=== PATIENT | female | born 1970 | race American Indian/Alaskan Native ===

== ENCOUNTER 2017-06-30 02:37 | Emergency (ER) | payer OTHER ==
--- NOTE | 2017-06-30 04:41 | XRay Report ---
FINAL REPORT EXAM: XR SPINE LUMBOSACRAL 2-3V HISTORY: lower back pain TECHNIQUE: Three views of the lumbar spine were submitted. FINDINGS: The disc heights and alignment appear normal. There is no evidence of fracture. The SI joints appear normal. The soft tissues are well maintained. IMPRESSION: Within normal limits.
[2017-06-30] MEDS ORDERED: DECADRON ONE (05:27)
[2017-06-30] MEDS ORDERED: DECADRON PO ONE (05:38)
[2017-06-30] MEDS ORDERED: TORADOL IM ONE (05:38)
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
[2017-06-30 06:08] LABS: Bacteria,Urine 4+ /HPF (Negative); Bilirubin,Urine NEG (Negative); Blood,Urine NEG (Negative); Ketones,Urine NEG (Negative); Leukocyte Esterase,Urine TR (Negative); Mucus,Urine FEW /HPF; Nitrite,Urine NEG (Negative); Protein,Urine <15 mg/dL mg/dL (Negative); Urobilinogen,Urine < 2.0 mg/dL (<2.0)
[2017-06-30 07:54] VITALS: BP 152/52
== END 2017-06-30 08:13 | disposition home or self-care (01) ==
LOC: ED 02:37
DX: I10 Essential (primary) hypertension (principal); M54.32 Sciatica, left side; R10.9 Unspecified abdominal pain; Z88.0 Allergy status to penicillin
CPT/HCPCS: 72100; 81001; 87086; 96372; 99284; J1885; J8540

== ENCOUNTER 2017-07-07 06:44 | Emergency (ER) | payer OTHER ==
[2017-07-07 07:18] VITALS: BP 148/55
[2017-07-07 07:56] LABS: Bilirubin,Urine NEG (Negative); Blood,Urine NEG (Negative); Ketones,Urine NEG (Negative); Leukocyte Esterase,Urine NEG (Negative); Mucus,Urine FEW /HPF; Nitrite,Urine NEG (Negative); Protein,Urine <15 mg/dL mg/dL (Negative); Urobilinogen,Urine < 2.0 mg/dL (<2.0)
[2017-07-07] MEDS ORDERED: TORADOL IM ONE (09:35)
[2017-07-07] MEDS ORDERED: ZOFRAN ODT PO ONE (09:39)
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
== END 2017-07-07 10:03 | disposition home or self-care (01) ==
LOC: ED 06:44
DX: M54.42 Lumbago with sciatica, left side (principal); G89.29 Other chronic pain; I10 Essential (primary) hypertension; Z90.49 Acquired absence of other specified parts of digestive tract; Z98.51 Tubal ligation status; Z86.2 Personal history of diseases of the blood and blood-forming organs and certain disorders involving the immune mechanism; Z88.0 Allergy status to penicillin
CPT/HCPCS: 81001; 96372; 99283; J1885; Q0162

== ENCOUNTER 2017-12-13 05:27 | Emergency (ER) | payer OTHER ==
[2017-12-13 05:33] VITALS: BP 150/75
== END 2017-12-13 06:30 | disposition left against medical advice (07) ==
LOC: ED 05:27
DX: R21 Rash and other nonspecific skin eruption (principal); Z53.21 Procedure and treatment not carried out due to patient leaving prior to being seen by health care provider

== ENCOUNTER 2018-01-05 23:52 | Emergency (ER) | payer OTHER ==
[2018-01-06 00:04] VITALS: BP 150/84
--- NOTE | 2018-01-06 01:35 | Emergency Department Report ---
ED Rash HPI - HPI Chief Complaint: Skin Rash Stated Complaint: RASH ON NECK/FACE Time Seen by Provider: 01/06/18 01:30 Duration: 3 Days Location: Neck Suspected Cause: Unknown Rash Symptoms: Yes Itching, No Facial Swelling, No Tongue/Oral Swelling, No Breathing Difficulties, No Choking Sensation, No Wheezing/Dyspnea, No Peeling, No Blistering, No Fever, No Lightheaded, No Malaise, No Myalgias Severity: moderate Other History: 47-year-old Thai female comes in complaining of rash the neck and face since Saturday. Patient reports itchiness. She is not sure if she has changed soaps from Dove to Lever 1999. Patient has tried [id number] remedies such as baking soda to the area. Patient reports she has allergy to penicillin she currently takes no medications on a daily basis and has a past medical history of anemia and tubal ligation. ED Review of Systems ROS: Stated complaint: RASH ON NECK/FACE Other details as noted in HPI Skin: rash (neck N Chin) ED Past Medical Hx - Past Medical History Previous Medical History?: Yes Hx Hypertension: No Additional medical history: Anemia - Surgical History Past Surgical History?: Yes Hx Cholecystectomy: Yes Additional Surgical History: Tubal Ligation - Social History Smoking Status: Never Smoker Substance Use Type: None - Medications Home Medications: Home Medications Medication Instructions Recorded Confirmed Last Taken Type Naproxen [Naprosyn] 500 mg PO BID #30 tablet 06/30/17 Unknown Rx Cyclobenzaprine [Flexeril] 10 mg PO QHS PRN #5 tablet 07/07/17 Unknown Rx Ibuprofen [Motrin] 600 mg PO Q8H PRN #30 tablet 07/07/17 Unknown Rx Triamcinolone Acetonide 1 applic TP BID PRN #15 oint...g. 01/06/18 Unknown Rx Rash Exam - Exam General: Vital signs noted. No distress. Alert and acting appropriately. HEENT: No Periorbital Edema, No Conjuctival Injection, No Chemosis, No Perioral Edema, No Tongue Edema, No Uvular Edema, No Compromised Airway, No Drooling Lungs: Yes Good Air Exchange (Normal Breath Sounds), No Wheezes, No Ronchi, No Stridor, No Cough, No Labored Respirations, No Retractions, No Use of Accessory Muscles, No Other Abnormal Lung Sounds Heart: Yes Regular, No Murmur Skin: Yes Maculopapular Rash, Yes Erythema, Yes Edema, No Encrustations, No Other Other: Positive: Abdomen Normal, Neurologic Normal, Musculoskeletal Normal ED Course Vital Signs 01/06/18 00:01 Temperature 98.4 F Pulse Rate 76 Respiratory 18 Rate Blood Pressure 150/84 O2 Sat by Pulse 100 Oximetry ED Medical Decision Making - Medical Decision Making Patient has been evaluated with his provider fast track. I discussed the patient that I will place her on an mouth steroids applied to her neck. I discussed the patient did not apply to her chin as has some hypopigmentation at this moment. Discussed patient to stop using the Lever 2000. If symptoms persist to follow up with her primary care provider. Critical care attestation.: If time is entered above; I have spent that time in minutes in the direct care of this critically ill patient, excluding procedure time. ED Disposition Clinical Impression: Rash Disposition: DC-01 TO HOME OR SELFCARE Is pt being admited?: No Does the pt Need Aspirin: No Condition: Stable Instructions: Acute Rash (ED) Additional Instructions: Please apply cream to the rash twice a day as needed. If symptoms persist or gets worse please follow up with her primary care provider. Prescriptions: Triamcinolone Acetonide 1 applic TP BID PRN #15 oint...g. PRN Reason: Rash Referrals: CARE TEAM,INTERNAL MEDICINE [Other] - 3-5 Days Forms: Work/School Release Form(ED)
== END 2018-01-06 01:30 | disposition home or self-care (01) ==
LOC: ED 23:52
DX: R21 Rash and other nonspecific skin eruption (principal); D64.9 Anemia, unspecified; Z90.49 Acquired absence of other specified parts of digestive tract; Z98.51 Tubal ligation status
CPT/HCPCS: 99282

== ENCOUNTER 2018-01-30 13:49 | Emergency (ER) | payer OTHER ==
[2018-01-30 13:59] VITALS: BP 164/81
[2018-01-30] MEDS ORDERED: DECADRON IM STA (15:19)
--- NOTE | 2018-01-30 15:19 | Emergency Department Report ---
ED Rash HPI - HPI Chief Complaint: Skin Rash Stated Complaint: FACIAL RASH Time Seen by Provider: 01/30/18 14:50 Duration: 6 days Location: Other (face) Suspected Cause: Unknown Rash Symptoms: Yes Itching (face), No Facial Swelling, No Tongue/Oral Swelling, No Breathing Difficulties, No Choking Sensation, No Wheezing/Dyspnea, No Peeling , No Blistering, No Fever, No Lightheaded, No Malaise, No Myalgias Severity: moderate Other History: Patient reports that she has facial rash on left side of her face and she broke out and have bumps to her face that is itchy and burning. She's had similar episode in the past. Patient said she had put steroid on her face and it changed colors that now she has dark spots on some area for face. She says she's been under a lot of stress that she is going on vacation so this usually happens when she is on distress. Denies any insect bite, food allergy. Denies any nausea vomiting, denies fever chills. Denies any shortness of breath or chest pain. Denies stridor or difficulty breathing. Denies any difficulty with swallowing or tongue or lip swelling. She's been putting cortisone cream and face but reports not getting better. She also reports that she put peroxide in her face which causes burning sensation. ED Review of Systems ROS: Stated complaint: FACIAL RASH Other details as noted in HPI Constitutional: denies: chills, fever Eyes: denies: eye discharge ENT: denies: ear pain, throat pain, congestion Respiratory: denies: cough, shortness of breath, SOB with exertion, SOB at rest , stridor, wheezing Cardiovascular: denies: chest pain, palpitations, edema, syncope Gastrointestinal: denies: nausea, vomiting Musculoskeletal: denies: joint swelling, arthralgia Skin: rash, pruritus. denies: lesions Neurological: denies: headache Psychiatric: denies: anxiety Hematological/Lymphatic: easy bleeding, easy bruising ED Past Medical Hx - Past Medical History Previous Medical History?: Yes Hx Hypertension: No Additional medical history: Anemia - Surgical History Past Surgical History?: Yes Hx Cholecystectomy: Yes Additional Surgical History: Tubal Ligation - Family History Family history: hypertension - Social History Smoking Status: Never Smoker Substance Use Type: None - Medications Home Medications: Home Medications Medication Instructions Recorded Confirmed Last Taken Type Naproxen [Naprosyn] 500 mg PO BID #30 tablet 06/30/17 Unknown Rx Cyclobenzaprine [Flexeril] 10 mg PO QHS PRN #5 tablet 07/07/17 Unknown Rx Ibuprofen [Motrin] 600 mg PO Q8H PRN #30 tablet 07/07/17 Unknown Rx Triamcinolone Acetonide 1 applic TP BID PRN #15 oint...g. 01/06/18 Unknown Rx Sulfamethoxazole/Trimethoprim 1 each PO BID 7 Days #14 tablet 01/30/18 Unknown Rx [Bactrim DS TAB] hydrOXYzine HCL [Atarax] 25 mg PO Q6HR PRN #15 tablet 01/30/18 Unknown Rx methylPREDNISolone [Medrol Dose 4 mg PO QAM 6 Days #1 pack 01/30/18 Unknown Rx Julián] Rash Exam - Exam General: Vital signs noted. No distress. Alert and acting appropriately. This is a 48-year-old female well-nourished well-developed in no acute distress. HEENT: No Periorbital Edema, No Conjuctival Injection, No Chemosis, No Perioral Edema, No Tongue Edema, No Uvular Edema, No Compromised Airway, No Drooling Lungs: Yes Good Air Exchange, No Wheezes, No Ronchi, No Stridor, No Cough, No Labored Respirations, No Retractions, No Use of Accessory Muscles, No Other Abnormal Lung Sounds Heart: Yes Regular (S1, S2), No Murmur Front/Back of Body, Lg (Color): 1 - Patient with pustular type bumps to the facial area. Sparsely scattered. No sign of cellulitis but tender to palpate. No drainage noted. Tetanus vaccine is up-to-date. Skin: Yes Excoriations (minimally to the facial area), Yes Tenderness (left facial area), Yes Other (pustular type, sparsely scattered bumps to the facial area.), No Urticarial Rash, No Maculopapular Rash, No Morbilliform rash, No Bulla(e), No Weeping, No Erythema, No Edema, No Encrustations Other: Positive: Abdomen Normal, Neurologic Normal, Musculoskeletal Normal ED Course Vital Signs 01/30/18 13:55 Temperature 97.6 F Pulse Rate 78 Respiratory 18 Rate Blood Pressure 164/81 O2 Sat by Pulse 98 Oximetry - Reevaluation(s) Reevaluation #1: 01/30/18 15:58 Patient given Decadron 10 mg IM and emergency room for skin rash. ED Medical Decision Making - Medical Decision Making This is a 48-year-old female presents emergency room 6 days of rash to face. She states that she is getting ready to go on vacation and she is under a lot of stress and similar episode 5 break in a pass when she is in stress. She is here to be evaluated. She is having itching with some burning to spots were rash is located. No anaphylaxis. Patient was seen and examined by myself and found to have pustular type bumps that is sparsely scattered to the facial area. Minimal tenderness to palpate. No signs of cellulitis, appears to be facial acne. She has hypopigmented spots to her facial area forearm where she is steroids on her face in the past. No involvement of upper or lower respiratory tract. Itching resolved with Decadron. I discussed diagnosis and treatment plan the patient and she voiced understanding. A/P 1: Facial pustules-will start on Bactrim DS 2: Nonspecific skin eruption-patient has acne to the facial area and she was given Decadron 10 mg IM which relieved her itching in and was started on Medrol Dosepak and Atarax for itching. Patient education and diagnosis, medication and needs follow-up with relief operator and she voiced understanding. Patient will be referred to relief operator and backed her primary care physician for follow-up visit Patient is stable and discharged home in stable condition. Vital signs are stable and she is afebrile. Patient has been relief. Patient discharged home to follow up with primary care and dermatology tomorrow. Discharged in stable condition with prescription for Bactrim DS, Medrol Dosepak and Atarax - Differential Diagnosis cellulitis, allergic reaction, contact dermatitis, acne Critical care attestation.: If time is entered above; I have spent that time in minutes in the direct care of this critically ill patient, excluding procedure time. ED Disposition Clinical Impression: Skin pustule, Rash and nonspecific skin eruption, Pruritic rash Disposition: DC-01 TO HOME OR SELFCARE Is pt being admited?: No Does the pt Need Aspirin: No Condition: Stable Instructions: Acute Rash (ED), Itchy Skin (ED) Additional Instructions: Keep affected area clean and dry Primary care relief operator as discussed Take medication as instructed Please do not put steroids on your face. Prescriptions: hydrOXYzine HCL [Atarax] 25 mg PO Q6HR PRN #15 tablet PRN Reason: Itching methylPREDNISolone [Medrol Dose Julián] 4 mg PO QAM 6 Days #1 pack Sulfamethoxazole/Trimethoprim [Bactrim DS TAB] 1 each PO BID 7 Days #14 tablet Referrals: PRIMARY CAREMD [Primary Care Provider] - 01/31/18 MADDISON PIÑA MD [Staff Physician] - 01/31/18
== END 2018-01-30 16:22 | disposition home or self-care (01) ==
LOC: ED 13:49
DX: L08.0 Pyoderma (principal); Z86.2 Personal history of diseases of the blood and blood-forming organs and certain disorders involving the immune mechanism; Z98.51 Tubal ligation status; Z90.49 Acquired absence of other specified parts of digestive tract; Z88.0 Allergy status to penicillin
CPT/HCPCS: 96372; 99282; J1100

== ENCOUNTER 2018-04-19 12:25 | Emergency (ER) | payer OTHER ==
[2018-04-19 13:22] LABS: Basophils % (Auto) 0.7 % (0.0-1.8); Eosinophils # (Auto) 0.1 K/mm3 (0.0-0.4); Eosinophils % (Auto) 1.6 % (0.0-4.3); Hematocrit 30.1 % (30.3-42.9); Hemoglobin 9.4 gm/dl (10.1-14.3); Lymphocytes # (Auto) 1.1 K/mm3 (1.2-5.4); Lymphocytes % (Auto) 26.7 % (13.4-35.0); Mean Corpuscular HGB Conc 31 % (30-34); Monocytes # (Auto) 0.2 K/mm3 (0.0-0.8); Monocytes % (Auto) 5.9 % (0.0-7.3); Platelet Count 289 K/mm3 (140-440)
[2018-04-19 13:26] LABS: Mean Corpuscular Hemoglobin 21 pg (28-32); Mean Corpuscular Volume 67 fl (79-97)
[2018-04-19] MEDS ORDERED: LIDOCAINE VISCOUS 2% PO ONE (15:13)
[2018-04-19] MEDS ORDERED: ALUM-MAG HYDROX-SIMETH 200-200-20MG/5ML PO ONE (15:13)
--- NOTE | 2018-04-19 15:14 | Emergency Department Report ---
ED Abdominal Pain HPI - General Chief Complaint: Recheck/Abnormal Lab/Rx Stated Complaint: IRON LOW Time Seen by Provider: 04/19/18 14:53 Source: patient Mode of arrival: Ambulatory Limitations: No Limitations - History of Present Illness Initial Comments: 48-year-old female presents to the ED with concern that her iron may be low. Patient reports that she is anemic, but has never required transfusion. When asked why she feels like her iron is low, patient states it is because over the last 3 days, every time she eats she experiences epigastric pain. Patient reports nausea and no vomiting. Reports generalized weakness. When asked if she has history of acid reflux, patient states no. MD Complaint: abdominal pain -: days(s) (3) Location: epigastric Radiation: none Migration to: no migration Severity: moderate Quality: sharp Consistency: intermittent Improves With: nothing Worsens With: eating Associated Symptoms: denies: vomiting - Related Data Previous Rx's Medication Instructions Recorded Last Taken Type Naproxen [Naprosyn] 500 mg PO BID #30 tablet 06/30/17 Unknown Rx Cyclobenzaprine [Flexeril] 10 mg PO QHS PRN #5 tablet 07/07/17 Unknown Rx Ibuprofen [Motrin] 600 mg PO Q8H PRN #30 tablet 07/07/17 Unknown Rx Triamcinolone Acetonide 1 applic TP BID PRN #15 oint...g. 01/06/18 Unknown Rx Sulfamethoxazole/Trimethoprim 1 each PO BID 7 Days #14 tablet 01/30/18 Unknown Rx [Bactrim DS TAB] hydrOXYzine HCL [Atarax] 25 mg PO Q6HR PRN #15 tablet 01/30/18 Unknown Rx methylPREDNISolone [Medrol Dose 4 mg PO QAM 6 Days #1 pack 01/30/18 Unknown Rx Julián] Dicyclomine [Bentyl] 20 mg PO QID PRN #20 tablet 04/19/18 Unknown Rx Esomeprazole Magnesium [Nexium] 40 mg PO DAILY #30 capsule. 04/19/18 Unknown Rx Ondansetron [Zofran Odt] 4 mg PO Q8HR PRN #20 tab.rapdis 04/19/18 Unknown Rx Allergies Allergy/AdvReac Type Severity Reaction Status Date / Time Penicillins Allergy Hives Verified 06/30/17 05:35 ED Review of Systems ROS: Stated complaint: IRON LOW Other details as noted in HPI Comment: All other systems reviewed and negative Constitutional: denies: chills, fever Respiratory: denies: shortness of breath Gastrointestinal: abdominal pain Neurological: weakness (generalized) ED Past Medical Hx - Past Medical History Hx Hypertension: No Additional medical history: Anemia - Surgical History Hx Cholecystectomy: Yes Additional Surgical History: Tubal Ligation - Social History Smoking Status: Never Smoker Substance Use Type: None - Medications Home Medications: Home Medications Medication Instructions Recorded Confirmed Last Taken Type Naproxen [Naprosyn] 500 mg PO BID #30 tablet 06/30/17 Unknown Rx Cyclobenzaprine [Flexeril] 10 mg PO QHS PRN #5 tablet 07/07/17 Unknown Rx Ibuprofen [Motrin] 600 mg PO Q8H PRN #30 tablet 07/07/17 Unknown Rx Triamcinolone Acetonide 1 applic TP BID PRN #15 oint...g. 01/06/18 Unknown Rx Sulfamethoxazole/Trimethoprim 1 each PO BID 7 Days #14 tablet 01/30/18 Unknown Rx [Bactrim DS TAB] hydrOXYzine HCL [Atarax] 25 mg PO Q6HR PRN #15 tablet 01/30/18 Unknown Rx methylPREDNISolone [Medrol Dose 4 mg PO QAM 6 Days #1 pack 01/30/18 Unknown Rx Julián] Dicyclomine [Bentyl] 20 mg PO QID PRN #20 tablet 04/19/18 Unknown Rx Esomeprazole Magnesium [Nexium] 40 mg PO DAILY #30 capsule.dr 04/19/18 Unknown Rx Ondansetron [Zofran Odt] 4 mg PO Q8HR PRN #20 tab.rapdis 04/19/18 Unknown Rx ED Physical Exam - General Limitations: No Limitations General appearance: alert, in no apparent distress - Head Head exam: Present: atraumatic, normocephalic - Eye Eye exam: Present: normal appearance - ENT ENT exam: Present: mucous membranes moist - Neck Neck exam: Present: normal inspection - Respiratory Respiratory exam: Present: normal lung sounds bilaterally. Absent: respiratory distress - Cardiovascular Cardiovascular Exam: Present: regular rate, normal rhythm - GI/Abdominal GI/Abdominal exam: Present: soft. Absent: distended, tenderness - Extremities Exam Extremities exam: Present: normal inspection - Neurological Exam Neurological exam: Present: alert, oriented X3 - Psychiatric Psychiatric exam: Present: normal affect, normal mood - Skin Skin exam: Present: warm, dry, intact, normal color ED Course Vital Signs 04/19/18 12:40 Temperature 99.5 F Pulse Rate 67 Respiratory 18 Rate Blood Pressure 171/62 O2 Sat by Pulse 99 Oximetry ED Medical Decision Making - Lab Data Result diagrams: 04/19/18 13:07 04/19/18 15:38 - EKG Data -: EKG Interpreted by Md EKG shows normal: sinus rhythm, axis, intervals, QRS complexes, ST-T waves Rate: normal - EKG Data Interpretation: normal EKG - Medical Decision Making Pt anemic but does not require blood transfusion at this time. Likely GERD if pt having epigastric pain following meals. Workup unremarkable. Will d/c with nexium, bentyl, and GI follow-up - Differential Diagnosis gastritis, ACS, pancreatitis, anemia Critical care attestation.: If time is entered above; I have spent that time in minutes in the direct care of this critically ill patient, excluding procedure time. ED Disposition Clinical Impression: GERD (gastroesophageal reflux disease) Disposition: TO HOME OR SELFCARE Is pt being admited?: No Condition: Stable Instructions: Diet for Ulcers and Gastritis (ED), Gastroesophageal Reflux Disease (ED) Prescriptions: Dicyclomine [Bentyl] 20 mg PO QID PRN #20 tablet PRN Reason: abdominal pain Esomeprazole Magnesium [Nexium] 40 mg PO DAILY #30 capsule. Ondansetron [Zofran Odt] 4 mg PO Q8HR PRN #20 tab.rapdis PRN Reason: Nausea Referrals: PRIMARY CARE, [Primary Care Provider] - 3-5 Days CINDY BARNHART MD [Staff Physician] - 3-5 Days CECY GIBSON MD [Staff Physician] - 3-5 Days YUMI TOMPKINS MD [Staff Physician] - 3-5 Days Time of Disposition: 16:34
[2018-04-19 16:04] LABS: Alanine Aminotransferase 7 units/L (7-56); BUN/Creatinine Ratio 7; Blood Urea Nitrogen 7 mg/dL (7-17); Hemolysis Index 0; Lipase 27 units/L (13-60)
[2018-04-19 16:08] LABS: Bilirubin,Direct < 0.2 mg/dL (0-0.2)
[2018-04-19 16:48] VITALS: BP 168/78
== END 2018-04-19 16:46 | disposition home or self-care (01) ==
LOC: ED 12:25
DX: K21.9 Gastro-esophageal reflux disease without esophagitis (principal); D50.9 Iron deficiency anemia, unspecified; Z98.51 Tubal ligation status; Z88.0 Allergy status to penicillin
CPT/HCPCS: 36415; 80048; 80074; 82728; 83540; 83690; 84484; 85025; 93005; 93010; 99283

== ENCOUNTER 2018-09-27 05:33 | Emergency (ER) | payer OTHER ==
[2018-09-27 06:37] LABS: Basophils % (Auto) 0.7 % (0.0-1.8); Eosinophils # (Auto) 0.1 K/mm3 (0.0-0.4); Eosinophils % (Auto) 1.6 % (0.0-4.3); Hematocrit 23.5 % (30.3-42.9); Hemoglobin 7.3 gm/dl (10.1-14.3); Lymphocytes # (Auto) 1.3 K/mm3 (1.2-5.4); Lymphocytes % (Auto) 27.4 % (13.4-35.0); Mean Corpuscular HGB Conc 31 % (30-34); Monocytes # (Auto) 0.3 K/mm3 (0.0-0.8); Monocytes % (Auto) 6.5 % (0.0-7.3); Platelet Count 271 K/mm3 (140-440); Red Blood Count 3.84 M/mm3 (3.65-5.03); Red Cell Distribution Width 19.9 % (13.2-15.2)
[2018-09-27 06:40] LABS: Mean Corpuscular Volume 61 fl (79-97)
[2018-09-27 06:57] LABS: Alanine Aminotransferase 5 units/L (7-56); Albumin 3.8 g/dL (3.9-5); BUN/Creatinine Ratio 16; Blood Urea Nitrogen 13 mg/dL (7-17); Calcium 8.7 mg/dL (8.4-10.2); Hemolysis Index 7
[2018-09-27 07:22] VITALS: BP 131/65
--- NOTE | 2018-09-27 07:30 | Emergency Department Report ---
ED General Adult HPI - General Chief complaint: Dizziness Stated complaint: IRON LOW Time Seen by Provider: 09/27/18 07:09 Source: patient Mode of arrival: Ambulatory Limitations: No Limitations - History of Present Illness Initial comments: Patient is 48 years old female with no significant past medical history except for anemia. Patient presented to the ER complaining of generalized weakness and dizziness and feeling tired and fatigued all the time. Patient denied any chest pain, shortness of breath, headache, numbness or tingling sensation. Patient stated that she is not taking a medicine for her anemia. She added that she have heavy menstrual period that can continue for up to 7 days sometimes. Patient did not have any follow-up with a phlebotomy program coordinator for that. Severity scale (0 -10): 0 - Related Data Previous Rx's Medication Instructions Recorded Last Taken Type Naproxen [Naprosyn] 500 mg PO BID #30 tablet 06/30/17 Unknown Rx Cyclobenzaprine [Flexeril] 10 mg PO QHS PRN #5 tablet 07/07/17 Unknown Rx Ibuprofen [Motrin] 600 mg PO Q8H PRN #30 tablet 07/07/17 Unknown Rx Triamcinolone Acetonide 1 applic TP BID PRN #15 oint...g. 01/06/18 Unknown Rx Sulfamethoxazole/Trimethoprim 1 each PO BID 7 Days #14 tablet 01/30/18 Unknown Rx [Bactrim DS TAB] hydrOXYzine HCL [Atarax] 25 mg PO Q6HR PRN #15 tablet 01/30/18 Unknown Rx methylPREDNISolone [Medrol Dose 4 mg PO QAM 6 Days #1 pack 01/30/18 Unknown Rx Julián] Dicyclomine [Bentyl] 20 mg PO QID PRN #20 tablet 04/19/18 Unknown Rx Esomeprazole Magnesium [Nexium] 40 mg PO DAILY #30 capsule.dr 04/19/18 Unknown Rx Ondansetron [Zofran Odt] 4 mg PO Q8HR PRN #20 tab.rapdis 04/19/18 Unknown Rx Allergies Allergy/AdvReac Type Severity Reaction Status Date / Time Penicillins Allergy Hives Verified 06/30/17 05:35 ED Review of Systems ROS: Stated complaint: IRON LOW Other details as noted in HPI Comment: All other systems reviewed and negative Constitutional: denies: chills, fever Respiratory: denies: cough, orthopnea, shortness of breath, SOB with exertion Cardiovascular: denies: chest pain, palpitations, dyspnea on exertion Gastrointestinal: denies: abdominal pain, nausea, vomiting, diarrhea, constipation, hematemesis, hematochezia Neurological: weakness (generalized), other (dizziness). denies: headache, numbness, paresthesias, confusion, abnormal gait ED Past Medical Hx - Past Medical History Previous Medical History?: Yes Hx Hypertension: No Additional medical history: Anemia - Surgical History Past Surgical History?: Yes Hx Cholecystectomy: Yes Additional Surgical History: Tubal Ligation - Social History Smoking Status: Never Smoker Substance Use Type: None - Medications Home Medications: Home Medications Medication Instructions Recorded Confirmed Last Taken Type Naproxen [Naprosyn] 500 mg PO BID #30 tablet 06/30/17 Unknown Rx Cyclobenzaprine [Flexeril] 10 mg PO QHS PRN #5 tablet 07/07/17 Unknown Rx Ibuprofen [Motrin] 600 mg PO Q8H PRN #30 tablet 07/07/17 Unknown Rx Triamcinolone Acetonide 1 applic TP BID PRN #15 oint...g. 01/06/18 Unknown Rx Sulfamethoxazole/Trimethoprim 1 each PO BID 7 Days #14 tablet 01/30/18 Unknown Rx [Bactrim DS TAB] hydrOXYzine HCL [Atarax] 25 mg PO Q6HR PRN #15 tablet 01/30/18 Unknown Rx methylPREDNISolone [Medrol Dose 4 mg PO QAM 6 Days #1 pack 01/30/18 Unknown Rx Julián] Dicyclomine [Bentyl] 20 mg PO QID PRN #20 tablet 04/19/18 Unknown Rx Esomeprazole Magnesium [Nexium] 40 mg PO DAILY #30 capsule.dr 04/19/18 Unknown Rx Ondansetron [Zofran Odt] 4 mg PO Q8HR PRN #20 tab.rapdis 04/19/18 Unknown Rx ED Physical Exam - General Limitations: No Limitations General appearance: alert, in no apparent distress - Head Head exam: Present: atraumatic, normocephalic, normal inspection - Eye Eye exam: Present: normal appearance, PERRL - ENT ENT exam: Present: normal exam, normal orophraynx, mucous membranes moist - Neck Neck exam: Present: normal inspection, full ROM. Absent: tenderness, meningismus, lymphadenopathy, thyromegaly - Respiratory Respiratory exam: Present: normal lung sounds bilaterally. Absent: respiratory distress, wheezes, rales, rhonchi, chest wall tenderness, accessory muscle use, decreased breath sounds, prolonged expiratory - Cardiovascular Cardiovascular Exam: Present: regular rate, normal rhythm, normal heart sounds - GI/Abdominal GI/Abdominal exam: Present: soft, normal bowel sounds. Absent: distended, tenderness, guarding, rebound, rigid, organomegaly, mass, bruit, pulsatile mass, hernia - Extremities Exam Extremities exam: Present: normal inspection, full ROM, normal capillary refill. Absent: pedal edema, calf tenderness - Back Exam Back exam: Present: normal inspection, full ROM. Absent: CVA tenderness (R), CVA tenderness (L), muscle spasm, paraspinal tenderness, vertebral tenderness - Neurological Exam Neurological exam: Present: alert, oriented X3, CN II-XII intact, normal gait, reflexes normal - Psychiatric Psychiatric exam: Present: normal mood - Skin Skin exam: Present: warm, intact, normal color ED Course Vital Signs 09/27/18 07:22 Temperature 98.4 F Pulse Rate 65 Respiratory 18 Rate Blood Pressure 131/65 [Left] O2 Sat by Pulse 99 Oximetry ED Medical Decision Making - Lab Data Result diagrams: 09/27/18 05:55 09/27/18 05:55 - Medical Decision Making Patient is 48 years old female with no significant past medical history except for anemia. Patient presented to the ER complaining of generalized weakness and dizziness and feeling tired and fatigued all the time. Patient denied any chest pain, shortness of breath, headache, numbness or tingling sensation. Patient stated that she is not taking a medicine for her anemia. She added that she have heavy menstrual period that can continue for up to 7 days sometimes. Patient did not have any follow-up with a phlebotomy program coordinator for that. Patient labs reviewed and showed a hemoglobin of 7.2. MCV 61 which is consistent with chronic iron deficiency anemia most likely from heavy bleeding during menstrual period. Patient does not have any clinical symptoms or signs of congestive heart failure. Patient does not need a blood transfusion at this moment. I believe patient will benefit from iron supplementation and a referral to phlebotomy program coordinator at this moment. I also advised patient to retain to the emergency room if her symptoms are not improved Critical care attestation.: If time is entered above; I have spent that time in minutes in the direct care of this critically ill patient, excluding procedure time. ED Disposition Clinical Impression: Anemia, Weakness Disposition: DC-01 TO HOME OR SELFCARE Is pt being admited?: No Condition: Stable Instructions: Weakness (ED), Iron Deficiency Anemia (ED), Iron Rich Diet (ED) Referrals: NADIYA COSME MD [Staff Physician] - 3-5 Days
== END 2018-09-27 07:40 | disposition home or self-care (01) ==
LOC: ED 05:33
DX: D64.9 Anemia, unspecified (principal); R53.1 Weakness; Z90.49 Acquired absence of other specified parts of digestive tract
CPT/HCPCS: 36415; 80053; 85025

== ENCOUNTER 2019-01-23 11:45 | Emergency (ER) | payer OTHER ==
[2019-01-23 12:20] VITALS: BP 178/80
--- NOTE | 2019-01-23 12:23 | Emergency Department Report ---
Blank Doc - Documentation Documentation: Pt with pain and swelling to rt ankle and knee. No trauma. Limping Xrays ordered Pt in no distress
--- NOTE | 2019-01-23 13:13 | XRay Report ---
3 views of the right ankle INDICATION: pain and swelling. COMPARISON: None available. FINDINGS: There is no evidence of fracture or subluxation of the ankle. There is mild soft tissue swelling abraham g the lateral ankle. Signer Name: Chino March MD Signed: 01/23/2019 1:08 PM Workstation Name: [id number]
--- NOTE | 2019-01-23 13:14 | XRay Report ---
Right knee 2 views INDICATION: Pain and swelling. FINDINGS: No fracture or dislocation is seen in the right knee. The joint spaces are maintained. No f ocal lytic or sclerotic lesions are seen. A small quadriceps insertion enthesophyte. No joint effusio n. Normal soft tissues. IMPRESSION: No acute abnormality. Quadriceps enthesopathy. Signer Name: Ariel Flores MD Signed: 01/23/2019 1:10 PM Workstation Name: [id number]
--- NOTE | 2019-01-23 13:57 | Emergency Department Report ---
HPI - General Chief Complaint: Extremity Injury, Lower Time Seen by Provider: 01/23/19 12:21 - HPI HPI: 49 yo AA F presents to the ED with the complaint of some pain and swelling to the right knee and ankle that has been going on for the past few days. She denies any trauma. The knee pain is to the anterior knee. The pain and swelling is to the outside of the ankle. She has not taken anything for her symptoms prior to presentation. She denies any other past medical history. No recent travel or sick contacts at home. She denies any rash or skin color changes. ED Past Medical Hx - Past Medical History Previous Medical History?: No Hx Hypertension: No Additional medical history: Anemia - Surgical History Hx Cholecystectomy: Yes Additional Surgical History: Tubal Ligation - Social History Smoking Status: Never Smoker Substance Use Type: None - Medications Home Medications: Home Medications Medication Instructions Recorded Confirmed Last Taken Type Naproxen [Naprosyn] 500 mg PO BID #30 tablet 06/30/17 Unknown Rx Cyclobenzaprine [Flexeril] 10 mg PO QHS PRN #5 tablet 07/07/17 Unknown Rx Triamcinolone Acetonide 1 applic TP BID PRN #15 oint...g. 01/06/18 Unknown Rx Sulfamethoxazole/Trimethoprim 1 each PO BID 7 Days #14 tablet 01/30/18 Unknown Rx [Bactrim DS TAB] hydrOXYzine HCL [Atarax] 25 mg PO Q6HR PRN #15 tablet 01/30/18 Unknown Rx methylPREDNISolone [Medrol Dose 4 mg PO QAM 6 Days #1 pack 01/30/18 Unknown Rx Julián] Dicyclomine [Bentyl] 20 mg PO QID PRN #20 tablet 04/19/18 Unknown Rx Esomeprazole Magnesium [Nexium] 40 mg PO DAILY #30 capsule. 04/19/18 Unknown Rx Ondansetron [Zofran Odt] 4 mg PO Q8HR PRN #20 tab.kailyn 04/19/18 Unknown Rx Docusate Sodium [Colace] 100 mg PO BID PRN #60 capsule 09/27/18 Unknown Rx Ferrous Sulfate [Feosol 325 MG tab] 325 mg PO BID #60 tablet 09/27/18 Unknown Rx Ibuprofen [Motrin 600 MG tab] 600 mg PO Q8H PRN #20 tablet 01/23/19 Unknown Rx ED Review of Systems ROS: Stated complaint: RT LEG SWOLLEN Other details as noted in HPI Comment: All other systems reviewed and negative Cardiovascular: edema Musculoskeletal: joint swelling, arthralgia Skin: denies: rash, lesions Physical Exam - Physical Exam Vital Signs: Vital Signs 01/23/19 12:18 Temperature 98.0 F Pulse Rate 63 Respiratory 18 Rate Blood Pressure 178/80 O2 Sat by Pulse 98 Oximetry Physical Exam: GENERAL: The patient is well-developed well-nourished. HENT: Normocephalic. Atraumatic. Patient has moist mucous membranes. EYES: Extraocular motions are intact. NECK: Supple. Trachea is midline. CHEST/LUNGS: Clear to auscultation. There is no respiratory distress noted. HEART/CARDIOVASCULAR: Regular. There is no tachycardia. There is no murmur. ABDOMEN: There is no abdominal distention. SKIN: Skin is warm and dry. NEURO: The patient is awake, alert, and oriented. The patient is cooperative. The patient has no focal neurologic deficits. The patient has normal speech. MUSCULOSKELETAL: There is some mild tenderness to palpation of the right anterior knee and circumferential right ankle but no obvious deformity. No appreciable edema to these areas. There is no limitation range of motion. Negative anterior and posterior drawer test and no laxity with valgus or varus stress of the affected right knee. ED Course Vital Signs 01/23/19 12:18 Temperature 98.0 F Pulse Rate 63 Respiratory 18 Rate Blood Pressure 178/80 O2 Sat by Pulse 98 Oximetry ED Medical Decision Making - Radiology Data Radiology results: image reviewed interpreted by me: X-ray of the right knee and ankle do not show any fracture, dislocations or any acute processes. - Medical Decision Making Patient presents to the emergency department with a few days of atraumatic right knee and ankle pain and some alleged swelling. On examination I do not see any obvious swelling or any significant abnormalities. X-rays were done of the right knee and ankle do not show any fracture, dislocation or any acute processes. Patient will be placed on some anti-inflammatory medication and has been given some referrals for orthopedics. She will return to the emergency Department with any worsening of her symptoms or any acute distress. - Differential Diagnosis osteoarthritis, fracture, sprain/strain, joint effusion Critical Care Time: No Critical care attestation.: If time is entered above; I have spent that time in minutes in the direct care of this critically ill patient, excluding procedure time. ED Disposition Clinical Impression: Right knee pain Qualifiers: Chronicity: acute Qualified Code(s): M25.561 - Pain in right knee Right ankle pain Qualifiers: Chronicity: acute Qualified Code(s): M25.571 - Pain in right ankle and joints of right foot Disposition: TO HOME OR SELFCARE Is pt being admited?: No Condition: Stable Instructions: Arthralgia (ED) Additional Instructions: Please follow-up with your primary care physician in the next few days. I am giving you a referral for a local orthopedist, Dr. Espino, to follow up regarding your knee and ankle pains, or any other musculoskeletal/joint complaints. Return to the emergency Department with any worsening of your symptoms or any acute distress. Prescriptions: Ibuprofen [Motrin 600 MG tab] 600 mg PO Q8H PRN #20 tablet PRN Reason: Pain Referrals: QUAN ESPINO MD [Staff Physician] - 2-3 Days Forms: Work/School Release Form(ED) Time of Disposition: 13:56
== END 2019-01-23 14:11 | disposition home or self-care (01) ==
LOC: ED 11:45
DX: M25.561 Pain in right knee (principal); M25.571 Pain in right ankle and joints of right foot
CPT/HCPCS: 99283

== ENCOUNTER 2020-04-21 12:12 | Emergency (ER) | payer SELFPAY ==
[2020-04-21 12:17] VITALS: BP 148/70
--- NOTE | 2020-04-21 15:15 | Emergency Department Report ---
Upper Extremity - HPI Chief Complaint: Extremity Injury, Upper Stated Complaint: PAIN IN ARMS/HANDS Time Seen by Provider: 04/21/20 15:08 Upper Extremity: Left Shoulder, Left Elbow, Left Wrist Occurred When: 3 Days Mechanism: Other Severity: mild, moderate Symptoms: Yes Pain with Movement, Yes Numbness, No Deformity, No Limited Range of Movement, No Weakness, No Swelling, No Bruising/Ecchymosis, No Laceration or Abrasion Other History: 50-year-old -Romanian female presents emergency department complaining of a 4-day history of progressively worsening burning/left knee pain that radiates from her medial elbow region up to her left shoulder and radiates down to the left wrist. No pain to the hand but she has been expansion numbness or tingling. 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 ED Review of Systems ROS: Stated complaint: PAIN IN ARMS/HANDS Other details as noted in HPI Comment: All other systems reviewed and negative ED Past Medical Hx - Past Medical History Previous Medical History?: Yes Hx Hypertension: No Additional medical history: Anemia - Surgical History Past Surgical History?: Yes Hx Cholecystectomy: Yes Additional Surgical History: Tubal Ligation - Social History Smoking Status: Never Smoker Substance Use Type: None - Medications Home Medications: Home Medications Medication Instructions Recorded Confirmed Last Taken Type Naproxen [Naprosyn] 500 mg PO BID #30 tablet 06/30/17 Unknown Rx Cyclobenzaprine [Flexeril] 10 mg PO QHS PRN #5 tablet 07/07/17 Unknown Rx Triamcinolone Acetonide 1 applic TP BID PRN #15 oint...g. 01/06/18 Unknown Rx Sulfamethoxazole/Trimethoprim 1 each PO BID 7 Days #14 tablet 01/30/18 Unknown Rx [Bactrim DS TAB] hydrOXYzine HCL [Atarax] 25 mg PO Q6HR PRN #15 tablet 01/30/18 Unknown Rx methylPREDNISolone [Medrol Dose 4 mg PO QAM 6 Days #1 pack 01/30/18 Unknown Rx Julián] Dicyclomine [Bentyl] 20 mg PO QID PRN #20 tablet 04/19/18 Unknown Rx Esomeprazole Magnesium [Nexium] 40 mg PO DAILY #30 capsule. 04/19/18 Unknown Rx Ondansetron [Zofran Odt] 4 mg PO Q8HR PRN #20 tab.rapdis 04/19/18 Unknown Rx Docusate Sodium [Colace] 100 mg PO BID PRN #60 capsule 09/27/18 Unknown Rx Ferrous Sulfate [Feosol 325 MG tab] 325 mg PO BID #60 tablet 09/27/18 Unknown Rx Ibuprofen [Motrin 600 MG tab] 600 mg PO Q8H PRN #20 tablet 01/23/19 Unknown Rx methOCARBAMOL [Robaxin TAB] 500 mg PO Q6H #20 tablet 04/21/20 Unknown Rx predniSONE [Deltasone] 50 mg PO QDAY #7 tab 04/21/20 Unknown Rx Upper Extremity Exam - Exam General: Vital signs noted. No distress. Alert and acting appropriately. Head and Torso: No HEENT Abnormality, No Neck Tenderness, No Chest/Lungs Abnormality, No Abdominal Tenderness, No Back Tenderness Shoulder Exam: Yes Normal Range of Motion in Shoulder, No Shoulder Tenderness, No Clavicle Tenderness, No Shoulder Deformity, No AC Joint Tenderness Arm Exam: No Arm/Humerus Tenderness, No Arm Deformity Elbow: Yes Elbow Tenderness (Tenderness along the medial aspect of the elbow), No Normal Range of Motion in Elbow, No Elbow Deformity Forearm: No Forearm Tenderness, No Forearm Deformity, No Pain with Pronation, No Pain with Supination Wrist: Yes Normal ROM in Wrist, No Wrist Tenderness, No Wrist Deformity, No Snuffbox Tenderness, No Pain with Axial Thumb Compression Hand: Yes Normal ROM in Digit(s), No Hand Tenderness, No Hand Deformity, No Digit Tenderness, No Digit(s) Deformity, No Tendon Dysfunction CMS Exam: No Broken Skin, No Normal Distal Pulses, No Normal Capillary Refill, No Normal Distal Sensation ED Course Vital Signs 04/21/20 12:13 Temperature 97.6 F Pulse Rate 76 Respiratory 18 Rate Blood Pressure 148/70 O2 Sat by Pulse 100 Oximetry ED Medical Decision Making - Medical Decision Making 50-year-old Romanian female with pain to the medial elbow recently down continue to the fingers progressively worsening the last few days suggestive of cubital tunnel syndrome however could also be epicondylitis, bursitis along with several musculoskeletal pathologies. No evidence of any vascular injuries or infectious processes are present. Critical care attestation.: If time is entered above; I have spent that time in minutes in the direct care of this critically ill patient, excluding procedure time. ED Disposition Clinical Impression: Elbow pain Disposition: DC-01 TO HOME OR SELFCARE Is pt being admited?: No Does the pt Need Aspirin: No Condition: Stable Instructions: Cubital Tunnel Syndrome (ED) Prescriptions: predniSONE [Deltasone] 50 mg PO QDAY #7 tab methOCARBAMOL [Robaxin TAB] 500 mg PO Q6H #20 tablet Referrals: PRIMARY CAREMD [Primary Care Provider] - 3-5 Days QUAN ALVARADO MD [Staff Physician] - 3-5 Days
== END 2020-04-21 16:18 | disposition home or self-care (01) ==
LOC: ED 12:12
DX: M25.522 Pain in left elbow (principal); Z90.49 Acquired absence of other specified parts of digestive tract; Z98.51 Tubal ligation status; Z79.899 Other long term (current) drug therapy; Z88.0 Allergy status to penicillin
CPT/HCPCS: 99282

== ENCOUNTER 2021-05-01 16:39 | Emergency (ER) | payer SELFPAY ==
--- NOTE | 2021-05-01 17:56 | Emergency Department Report ---
ED Back Pain/Injury HPI - General Chief Complaint: Back Pain/Injury Stated Complaint: BACK PAIN Time Seen by Provider: 05/01/21 17:52 Source: patient Limitations: No Limitations - History of Present Illness MD Complaint: back pain -: Gradual, days(s) Similar Symptoms Previously: Yes Place: work Radiation: right leg Severity: mild Severity scale (0 -10): 4 Quality: burning, sharp Consistency: intermittent Improves With: immobilization Worsens With: movement Context: while lifting Associated Symptoms: denies other symptoms. denies: confusion, weakness, chest pain, numbness, difficulty walking, cough, difficulty urinating, diaphoresis, incontinence, fever/chills, constipation, headaches, abdominal pain, loss of appetite, malaise, nausea/vomiting, rash, seizure, shortness of breath, syncope - Related Data Previous Rx's Medication Instructions Recorded Last Taken Type Cyclobenzaprine [Flexeril] 10 mg PO TID PRN #10 tablet 05/01/21 Unknown Rx Ibuprofen [Motrin] 800 mg PO Q8HR PRN #30 tablet 05/01/21 Unknown Rx predniSONE [Deltasone] 20 mg PO DAILY #5 tablet 05/01/21 Unknown Rx Allergies Allergy/AdvReac Type Severity Reaction Status Date / Time Penicillins Allergy Hives Verified 01/23/19 11:48 ED Review of Systems ROS: Stated complaint: BACK PAIN Other details as noted in HPI Comment: All other systems reviewed and negative ED Past Medical Hx - Past Medical History Previous Medical History?: Yes Hx Hypertension: No Additional medical history: Anemia. chronic back pain - Surgical History Past Surgical History?: Yes Hx Cholecystectomy: Yes Additional Surgical History: Tubal Ligation. gall bladder - Family History Family history: no significant - Social History Smoking Status: Never Smoker Substance Use Type: None - Medications Home Medications: Home Medications Medication Instructions Recorded Confirmed Last Taken Type Cyclobenzaprine [Flexeril] 10 mg PO TID PRN #10 tablet 05/01/21 Unknown Rx Ibuprofen [Motrin] 800 mg PO Q8HR PRN #30 tablet 05/01/21 Unknown Rx predniSONE [Deltasone] 20 mg PO DAILY #5 tablet 05/01/21 Unknown Rx ED Physical Exam - General Limitations: No Limitations General appearance: alert, in no apparent distress - Head Head exam: Present: atraumatic, normocephalic - Eye Eye exam: Present: normal appearance - ENT ENT exam: Present: mucous membranes moist - Neck Neck exam: Present: normal inspection - Respiratory Respiratory exam: Present: normal lung sounds bilaterally. Absent: respiratory distress - Cardiovascular Cardiovascular Exam: Present: regular rate, normal rhythm. Absent: systolic murmur, diastolic murmur, rubs, gallop - GI/Abdominal GI/Abdominal exam: Present: soft, normal bowel sounds - Extremities Exam Extremities exam: Present: normal inspection - Back Exam Back exam: Present: normal inspection - Neurological Exam Neurological exam: Present: alert, oriented X3 - Psychiatric Psychiatric exam: Present: normal affect, normal mood - Skin Skin exam: Present: warm, dry, intact, normal color. Absent: rash ED Course Vital Signs 05/01/21 17:42 Temperature 98.4 F Pulse Rate 60 Respiratory 16 Rate Blood Pressure 154/66 O2 Sat by Pulse 100 Oximetry ED Medical Decision Making - Medical Decision Making no spine tenderness no fall no fever/chills no change in bowel habits no s/s cauda equina no dysuria no vag bleeding or dc a/c back pain with re-exacerbation while lifting at work. Ambulatory and non ill appearing on exam in triage. Neuro intact. Pos right straight leg raise Vital Signs 05/01/21 17:42 Temperature 98.4 F Pulse Rate 60 Respiratory 16 Rate Blood Pressure 154/66 O2 Sat by Pulse 100 Oximetry dc home with dc plan of care including diet, activity, follow up and meds. We have discussed body mechanics and her being prone to sciatica given her back history. Pt verbalizes understanding of discharge plan of care - Differential Diagnosis a/c back pain; sciatica; uti Critical care attestation.: If time is entered above; I have spent that time in minutes in the direct care of this critically ill patient, excluding procedure time. ED Disposition Clinical Impression: Chronic back pain, Sciatica Disposition: 01 HOME / SELF CARE / HOMELESS Is pt being admited?: No Does the pt Need Aspirin: No Condition: Stable Instructions: Sciatica Additional Instructions: warm compresses meds as ordered today follow up with pcp or ortho MD referrals below good body mechanics to prevent reinjury Prescriptions: predniSONE [Deltasone] 20 mg PO DAILY #5 tablet Cyclobenzaprine [Flexeril] 10 mg PO TID PRN #10 tablet PRN Reason: Muscle Spasm Ibuprofen [Motrin] 800 mg PO Q8HR PRN #30 tablet PRN Reason: Pain, Moderate (4-6) Forms: Work/School Release Form(ED) Time of Disposition: 18:01
[2021-05-01 18:36] VITALS: BP 152/81
== END 2021-05-01 18:38 | disposition home or self-care (01) ==
LOC: ED 16:39
DX: M54.41 Lumbago with sciatica, right side (principal); Z88.0 Allergy status to penicillin; Z98.51 Tubal ligation status; Z79.899 Other long term (current) drug therapy; X50.0XXA Overexertion from strenuous movement or load, initial encounter; Y93.89 Activity, other specified; Y92.89 Other specified places as the place of occurrence of the external cause; Y99.8 Other external cause status
CPT/HCPCS: 99282